=== PATIENT | female | born 1950 | race Caucasian/White ===

== ENCOUNTER 2019-05-20 12:06 | Emergency (ER) | payer MEDICARE, BC ==
--- NOTE | 2019-05-20 12:54 | EDM.PDOC ---
ED HPI GENERAL MEDICAL PROBLEM - General Chief Complaint: General Stated Complaint: FROM CLINIC Time Seen by Provider: 05/20/19 12:35 Source of Information: Reports: Patient, Other (clinic labs) History Limitations: Reports: No Limitations - History of Present Illness INITIAL COMMENTS - FREE TEXT/NARRATIVE: 68 yo female here on referral from the clinic for a UTI. She has a hx of AODM and is on metformin 750 mg qd for this. The last time she was in to see her provider her BS was a little high. Raising the metformin dose was discussed, but they decided to revisit this issue on her next visit. No fever or vomiting. Feels generally well. The provider who saw her today thought she needed IV fluids, however, her urine SG today is 1.010. Onset: Gradual Onset Date: 05/19/19 Duration: Hour(s): Location: Reports: Pelvis (mild dyuria) Quality: Reports: Burning Severity: Mild Improves with: Reports: None Worsens with: Reports: Other (time) Context: Reports: Other (see HPI) Associated Symptoms: Denies: Fever/Chills Treatments PROFESSOR/NURSE ANESTHETIST: Reports: Other (see below) (none) - Related Data Allergies Allergy/AdvReac Type Severity Reaction Status Date / Time nitrofurantoin Allergy Itching Verified 05/20/19 12:32 [From Macrobid] Home Meds: Home Meds Anastrozole [Arimidex] 1 mg PO DAILY 05/20/19 [History] Chlorthalidone 25 mg PO DAILY 05/20/19 [History] Ciprofloxacin HCl [Cipro] 250 mg PO Q12H #14 tablet 05/20/19 [Rx] Empagliflozin/Linagliptin [Glyxambi 10 mg-5 mg Tablet] 1 each PO 05/20/19 [ History] Ezetimibe [Zetia] 10 mg PO DAILY 05/20/19 [History] Metoprolol Succinate 25 mg PO DAILY 05/20/19 [History] Pantoprazole Sodium [Protonix] 40 mg PO DAILY 05/20/19 [History] amLODIPine Besylate/Benazepril [Amlodipine-Benazepril 5-20 MG] 1 each PO DAILY 05/20/19 [History] atorvaSTATin Calcium [Lipitor] 20 mg PO DAILY 05/20/19 [History] metFORMIN [Glucophage XR] 750 mg PO QAM 07/31/19 [History] Past Medical History HEENT History: Reports: Impaired Vision Cardiovascular History: Reports: Hypertension Endocrine/Metabolic History: Reports: Diabetes, Type II Oncologic (Cancer) History: Reports: Breast - Infectious Disease History Infectious Disease History: Reports: Chicken Pox, Measles, Mumps - Past Surgical History Female Surgical History: Reports: Other (See Below) Other Female Surgeries/Procedures: lumpectomy Social & Family History - Tobacco Use Smoking Status *Q: Never Smoker - Caffeine Use Caffeine Use: Reports: Soda, Tea - Recreational Drug Use Recreational Drug Use: No ED ROS GENERAL - Review of Systems Review Of Systems: See Below Constitutional: Denies: Fever, Chills GI/Abdominal: Reports: Nausea : Reports: Dysuria Skin: Reports: No Symptoms ED EXAM, GENERAL - Physical Exam Exam: See Below Exam Limited By: No Limitations General Appearance: Alert, WD/WN, No Apparent Distress Eye Exam: Bilateral Eye: Normal Inspection Ears: Hearing Grossly Normal Nose: Normal Inspection Throat/Mouth: Normal Voice, No Airway Compromise Head: Atraumatic, Normocephalic Extremities: Normal Inspection Neurological: Alert, Oriented, CN II-XII Intact, Normal Cognition Psychiatric: Normal Affect, Normal Mood Skin Exam: Warm, Dry, Intact, Normal Color, No Rash Course - Vital Signs Last Recorded V/S: Last Vital Signs Temp 35.5 C 05/20/19 12:32 Pulse 90 05/20/19 12:32 Resp 15 05/20/19 12:32 BP 151/79 H 05/20/19 12:32 Pulse Ox 95 05/20/19 12:32 Departure - Departure Time of Disposition: 12:52 Disposition: Home, Self-Care 01 Condition: Good Clinical Impression: Cystitis, UTI, Urinary tract infectious disease - Discharge Information *PRESCRIPTION DRUG MONITORING PROGRAM REVIEWED*: No *COPY OF PRESCRIPTION DRUG MONITORING REPORT IN PATIENT MILIND: No Prescriptions: Ciprofloxacin HCl [Cipro] 250 mg PO Q12H #14 tablet Referrals: PCP,None [Primary Care Provider] - Additional Instructions: Take ciprofloxacin every 12 hrs until gone. Use AZO as needed for dyscomfort. Recheck if not improving or if fever develops. Discuss a bump in your metformin with your doctor due to elevated blood sugar and lots of sugar in your urine.
== END 2019-05-20 13:01 | disposition home or self-care (01) ==
LOC: JP.ED 12:06
DX: N30.90 Cystitis, unspecified without hematuria (principal); I10 Essential (primary) hypertension; E11.9 Type 2 diabetes mellitus without complications; Z88.1 Allergy status to other antibiotic agents; Z79.899 Other long term (current) drug therapy; Z79.84 Long term (current) use of oral hypoglycemic drugs
CPT/HCPCS: 99282; 99283